=== PATIENT | male | born 1975 | race Caucasian/White ===

== ENCOUNTER 2018-03-12 09:58 | Inpatient (IN) | payer OTHER ==
[2018-03-12 10:54] VITALS: BMI 24.6
--- NOTE | 2018-03-12 13:40 | HP ---
CIWA Score - CIWA Score Nausea/Vomitin-No Nausea/No Vomiting Muscle Tremors: 1-None Visible, but [place] Anxiety: 3 Agitation: 2 Paroxysmal Sweats: 3 Orientation: 0-Oriented Tacttile Disturbances: 0-None Auditory Disturbances: 0-None Visual Disturbances: 0-None Headache: 3-Moderate CIWA-Ar Total Score: 12 Admission ROS S - HPI Chief Complaint: ETOH withdrawal symptoms. Allergies/Adverse Reactions: Allergies Allergy/AdvReac Type Severity Reaction Status Date / Time No Known Allergies Allergy Verified 03/12/18 12:10 History of Present Illness: Patient presents for ETOH withdrawal symptoms. Started drinking at age 19. Drinks up to 12 24 ounce beers daily. Also smoke marajuana since age 19. Smokes up to 5-6 blunts daily. Pt states his drinking became severe after losing his job one year ago. Feels very stressed and anxious due to financial situation. Denies having seizures from ETOH use/withdrawals. Denies SI/HI and suicide attempts. Has one daughter, 17 years of age. Last drink yesterday. Exam Limitations: No Limitations - Ebola screening Have you traveled outside of the country in the last 21 days: No (N) Have you had contact with anyone from an Ebola affected area: No Have you been sick,other than usual withdrawal symptoms: No Do you have a fever: No - Review of Systems Constitutional: Loss of Appetite, Changes in sleep EENT: reports: Nose Congestion Respiratory: reports: No Symptoms reported Cardiac: reports: No Symptoms Reported GI: reports: Poor Fluid Intake, Other (poor appetite) : reports: No Symptoms Reported Musculoskeletal: reports: No Symptoms Reported Integumentary: reports: Sweating Neuro: reports: Headache, Tremors Endocrine: reports: No Symptoms Reported Hematology: reports: No Symptoms Reported Psychiatric: reports: Orientated x3, Anxious, Depressed Patient History - Patient Medical History Hx Anemia: No Hx Asthma: No Hx Chronic Obstructive Pulmonary Disease (COPD): No Hx Cancer: No Hx Cardiac Disorders: No Hx Congestive Heart Failure: No Hx Hypertension: No Hx Hypercholesterolemia: No Hx Pacemaker: No HX Cerebrovascular Accident: No Hx Seizures: No Hx Dementia: No Hx Diabetes: No Hx Gastrointestinal Disorders: No Hx Liver Disease: No Hx Genitourinary Disorders: No Hx Sexually Transmitted Disorders: No Hx Renal Disease (ESRD): No Hx Thyroid Disease: No Hx Human Immunodeficiency Virus (HIV): No Hx Hepatitis C: No Hx Depression: Yes Hx Suicide Attempt: No Hx Bipolar Disorder: No Hx Schizophrenia: No - Patient Surgical History Past Surgical History: Yes Hx Neurologic Surgery: No Hx Cataract Extraction: No Hx Cardiac Surgery: No Hx Lung Surgery: No Hx Breast Surgery: No Hx Breast Biopsy: No Hx Abdominal Surgery: No Hx Appendectomy: No Hx Cholecystectomy: No Hx Genitourinary Surgery: No Hx Section: No Hx Orthopedic Surgery: No Other Surgical History: right inguinal hernia repair in 02/2017 Anesthesia Reaction: No - PPD History Previous Implant?: Yes Documented Results: Negative w/o proof Implanted On Prior R Admission?: No PPD to be Administered?: Yes - Smoking Cessation Smoking history: Former smoker Have you smoked in the past 12 months: No If you are a former smoker, when did you quit?: at age 23 Hx Chewing Tobacco Use: No Initiated information on smoking cessation: No - Substance & Tx. History Hx Alcohol Use: Yes Hx Substance Use: Yes Substance Use Type: Marijuana Hx Substance Use Treatment: No - Substances Abused Alcohol-vodka/beer Route: Oral Frequency: Daily Amount used: 2 pts./5-7 (40 oz.) Age of first use: 19 Date of Last Use: 03/11/18 Marijuana Route: Smoking Frequency: Daily Amount used: $30 Age of first use: 20 Date of Last Use: 03/11/18 Family Disease History - Family Disease History Family History: Denies Admission Physical Exam BHS - Vital Signs Vital Signs: Vital Signs - 24 hr 03/12/18 10:52 Temperature 97.8 F Pulse Rate 69 Respiratory 18 Rate Blood Pressure 137/75 - Physical General Appearance: Yes: No Apparent Distress, Appropriately Dressed, Sweating, Anxious HEENTM: Yes: EOMI, Hearing grossly Normal, Normal ENT Inspection, Normocephalic , Normal Voice, ROSY Respiratory: Yes: Chest Non-Tender, Lungs Clear, Normal Breath Sounds, No Respiratory Distress, No Accessory Muscle Use Neck: Yes: Within Normal Limits, No masses,lesions,Nodules, Supple, Trachea in good position Breast: Yes: Breast Exam Deferred Cardiology: Yes: Regular Rhythm, Regular Rate, S1, S2 Abdominal: Yes: Normal Bowel Sounds, Non Tender, Flat, Soft Genitourinary: Yes: Within Normal Limits Back: Yes: Normal Inspection Musculoskeletal: Yes: Gait Steady Extremities: Yes: Normal Inspection, Normal Range of Motion, Non-Tender, Tremors Neurological: 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: 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 II-XII NML intact, Fully Oriented, Alert, Motor Strength 5/5, Depressed Affect Integumentary: Yes: Normal Color, Warm, Moist Lymphatic: Yes: Within Normal Limits - Diagnostic (1) Alcohol dependence with uncomplicated withdrawal Current Visit: Yes Status: Acute (2) Depressed affect Current Visit: Yes Status: Acute (3) Anxiety Current Visit: Yes Status: Acute (4) Marijuana dependence Current Visit: Yes Status: Acute Cleared for Admission [facility] - Detox or Rehab [facility] Level of Care: Medically Managed Detox Regimen/Protocol: Librium [facility] Breath Alcohol Content Breath Alcohol Content: 0 Urine Drug Screen - Results Drug Screen Negative: No Urine Drug Screen Results: THC-Marijuana
[2018-03-12] MEDS ORDERED: IBUPROFEN 400 MG TABLET (FP) PO PRN (13:54)
[2018-03-12] MEDS ORDERED: hydrOXYzine PAMOATE 50 MG CAPSULE (FP) PO PRN (13:54)
[2018-03-12] MEDS ORDERED: MAGNESIUM CITRATE 300 ML BOTTLE PO PRN (13:54)
[2018-03-12] MEDS ORDERED: MAG HYDROX/AL HYDROX/SIMETH 30 ML UNIT-DOSE CUP PO PRN (13:54)
[2018-03-12] MEDS ORDERED: LOPERAMIDE HCL 2 MG CAPSULE PO PRN (13:54)
[2018-03-12] MEDS ORDERED: guaiFENesin/D-METHORPHAN HB 10 ML UNIT-DOSE CUPS PO PRN (13:54)
[2018-03-12] MEDS ORDERED: MENTHOL/PHENOL 1 EACH UD MM PRN (13:54)
[2018-03-12] MEDS ORDERED: ACETAMINOPHEN 325 MG TABLET (FP) PO PRN (13:54)
[2018-03-12] MEDS ORDERED: MAGNESIUM HYDROX 2400MG/30ML ORAL SUSPENSION 30 ML CUP PO PRN (13:54)
[2018-03-12] MEDS ORDERED: P-EPHED 60MG/TRIPROLIDI 2.5MG TABLET PO PRN (13:54)
[2018-03-12] MEDS ORDERED: chlordiazePOXIDE HCL 25 MG CAPSULE PO PRN (13:56)
[2018-03-12] MEDS ORDERED: chlordiazePOXIDE HCL 25 MG CAPSULE PO ONE (15:00)
[2018-03-12] MEDS: chlordiazePOXIDE HCL 25 MG CAPSULE PO SCH ×2 (17:22→22:15)
--- NOTE | 2018-03-12 22:04 | EKG ---
Test Reason : Blood Pressure : / mmHG Vent. Rate : 061 BPM Atrial Rate : 061 BPM P-R Int : 202 ms QRS Dur : 104 ms QT Int : 416 ms P-R-T Axes : 052 041 048 degrees QTc Int : 418 ms NORMAL SINUS RHYTHM NORMAL ECG NO PREVIOUS ECGS AVAILABLE Confirmed by NAV GRIGGS MD ([id number]) on 03/12/2018 10:04:28 PM Referred By: Confirmed By:NAV GRIGGS MD
[2018-03-12] MEDS: THIAMINE HCL 100 MG TABLET (FP) PO SCH (22:15)
[2018-03-12] MEDS: MELATONIN 5 MG TABLETS PO PRN (22:16)
[2018-03-12 22:58] LABS: URINE APPEARANCE CLEAR; URINE BILIRUBIN NEGATIVE (<2.0 mg/dL); URINE COLOR LTYELLOW; URINE GLUCOSE (UA) NEGATIVE (NEGATIVE); URINE KETONE NEGATIVE (NEGATIVE); URINE LEUK ESTERASE NEGATIVE (NEGATIVE); URINE NITRITE NEGATIVE (NEGATIVE); URINE PROTEIN NEGATIVE (NEGATIVE); URINE UROBILINOGEN NEGATIVE mg/dL (0.2-1.0)
[2018-03-13] MEDS: chlordiazePOXIDE HCL 25 MG CAPSULE PO SCH ×4 (05:58→22:04)
[2018-03-13 10:01] LABS: HEMATOCRIT 40.3 % (35.4-49); HEMOGLOBIN 13.8 GM/dL (11.7-16.9); MCH 31.9 pg (25.7-33.7); MCHC 34.1 g/dl (32.0-35.9); MEAN CELL VOLUME 93.5 fl (80-96); MEAN PLT VOLUME 9.7 fl (7.5-11.1); PLATELET COUNT 250 K/MM3 (134-434); RBC 4.31 M/mm3 (4.00-5.60); RDW 13.4 % (11.9-15.9); WHITE BLOOD COUNT 6.8 K/mm3 (4.0-10.0)
[2018-03-13] MEDS: PRENATAL VITAMINS W/ FOLIC ACID TABLET (FP) PO SCH (10:41)
[2018-03-13 11:05] LABS: CALCIUM 9.7 mg/dL (8.5-10.1); CHLORIDE 103 mmol/L (98-107); POTASSIUM 4.5 mmol/L (3.5-5.1); SODIUM 139 mmol/L (136-145)
[2018-03-13 11:11] LABS: ALBUMIN 4.6 g/dl (3.4-5.0); ALK PHOS 62 U/L (45-117); ANION GAP 8 (8-16); BILIRUBIN,TOTAL 0.6 mg/dL (0.2-1.0); BLOOD UREA NITROGEN 9 mg/dL (7-18); CO2 28 mmol/L (21-32); CREATININE 0.8 mg/dL (0.7-1.3); GLUCOSE,RANDOM 90 mg/dL (74-106); SGOT/AST 18 U/L (15-37); SGPT/ALT 18 U/L (12-78); TOT PROT 7.9 g/dl (6.4-8.2)
--- NOTE | 2018-03-13 11:21 | PN ---
[facility] CIWA - CIWA Score Nausea/Vomitin-No Nausea/No Vomiting Muscle Tremors: 4-Moderate,w/Arms Extend Anxiety: 4-Mod. Anxious/Guarded Agitation: 4-Moderately Restless Paroxysmal Sweats: 1-Minimal Palms Moist Orientation: 0-Oriented Tacttile Disturbances: 0-None Auditory Disturbances: 0-None Visual Disturbances: 0-None Headache: 0-None Present CIWA-Ar Total Score: 13 S Progress Note (SOAP) Subjective: LYING IN BED DURING ROUNDS. ANXIETY,SWEATS. Objective: 03/13/18 11:21 Vital Signs Temperature 96.6 F L 03/13/18 09:21 Pulse Rate 56 L 03/13/18 09:21 Respiratory Rate 16 03/13/18 09:21 Blood Pressure 89/61 03/13/18 09:21 O2 Sat by Pulse Oximetry (%) Laboratory Last Values WBC 6.8 K/mm3 (4.0-10.0) 03/13/18 06:00 RBC 4.31 M/mm3 (4.00-5.60) 03/13/18 06:00 Hgb 13.8 GM/dL (11.7-16.9) 03/13/18 06:00 Hct 40.3 % (35.4-49) 03/13/18 06:00 MCV 93.5 fl (80-96) 03/13/18 06:00 MCH 31.9 pg (25.7-33.7) 03/13/18 06:00 MCHC 34.1 g/dl (32.0-35.9) 03/13/18 06:00 RDW 13.4 % (11.9-15.9) 03/13/18 06:00 Plt Count 250 K/MM3 (134-434) 03/13/18 06:00 MPV 9.7 fl (7.5-11.1) 03/13/18 06:00 Sodium 139 mmol/L (136-145) 03/13/18 06:00 Potassium 4.5 mmol/L (3.5-5.1) 03/13/18 06:00 Chloride 103 mmol/L (98-107) 03/13/18 06:00 Carbon Dioxide 28 mmol/L (21-32) 03/13/18 06:00 Anion Gap 8 (8-16) 03/13/18 06:00 BUN 9 mg/dL (7-18) 03/13/18 06:00 Creatinine 0.8 mg/dL (0.7-1.3) 03/13/18 06:00 Creat Clearance w eGFR > 60 (>60) 03/13/18 06:00 Random Glucose 90 mg/dL (74-106) 03/13/18 06:00 Calcium 9.7 mg/dL (8.5-10.1) 03/13/18 06:00 Total Bilirubin 0.6 mg/dL (0.2-1.0) 03/13/18 06:00 AST 18 U/L (15-37) 03/13/18 06:00 ALT 18 U/L (12-78) 03/13/18 06:00 Alkaline Phosphatase 62 U/L (45-117) 03/13/18 06:00 Total Protein 7.9 g/dl (6.4-8.2) 03/13/18 06:00 Albumin 4.6 g/dl (3.4-5.0) 03/13/18 06:00 Urine Color Ltyellow 03/12/18 23:00 Urine Appearance Clear 03/12/18 23:00 Urine pH 7.0 (5.0-8.0) 03/12/18 23:00 Ur Specific [place] 1.012 (1.001-1.035) 03/12/18 23:00 Urine Protein Negative (NEGATIVE) 03/12/18 23:00 Urine Glucose (UA) Negative (NEGATIVE) 03/12/18 23:00 Urine Ketones Negative (NEGATIVE) 03/12/18 23:00 Urine Blood Negative (NEGATIVE) 03/12/18 23:00 Urine Nitrite Negative (NEGATIVE) 03/12/18 23:00 Urine Bilirubin Negative (<2.0 mg/dL) 03/12/18 23:00 Urine Urobilinogen Negative mg/dL (0.2-1.0) 03/12/18 23:00 Ur Leukocyte Esterase Negative (NEGATIVE) 03/12/18 23:00 Assessment: 03/13/18 11:22 WITHDRAWAL SX Plan: CONTINUE DETOX
--- NOTE | 2018-03-13 17:58 | CONSULT ---
[facility] Psychiatric Consult - Data Date of interview: 03/13/18 Admission source: [facility] Identifying data: First admission to [facility] for this 42 y/o [place]-born male seeking detox treatment on for alcohol and cannabis dependence.Patient is single,a father of one,homeless,unemployed and deprived of any source of income. Substance Abuse History: Confirmed by patient in this session.Details in current [facility] report : Smoking history: Former smoker. Have you smoked in the past 12 months: No. If you are a former smoker, when did you quit?: at age 23. Hx Chewing Tobacco Use: No. Initiated information on smoking cessation: No. - Substance & Tx. History. Hx Alcohol Use: Yes. Hx Substance Use: Yes. Substance Use Type: Marijuana. Hx Substance Use Treatment: No. - Substances Abused. Alcohol-vodka/beer. Route: Oral. Frequency: Daily. Amount used: 2 pts./5-7 (40 oz.). Age of first use: 19. Date of Last Use: 03/11/18. Marijuana. Route: Smoking. Frequency: Daily. Amount used: $30. Age of first use: 20. Date of Last Use: 03/11/18 Medical History: History of right inguinal herniorraphy (2006). Psychiatric History: Patient denies. Physical/Sexual Abuse/Trauma History: Patient denies. Additional Comment: Urine Drug Screen Results: THC-Marijuana.Noted. Mental Status Exam - Mental Status Exam Alert and Oriented to: Time, Place, Person Cognitive Function: Good Patient Appearance: Disheveled (unshaven) Mood: Nervous, Withdrawn, Anxious Affect: Mood Congruent, Constricted Patient Behavior: Appropriate, Cooperative Speech Pattern: Clear (fluent in greenlandic) Voice Loudness: Normal Thought Process: Intact, Goal Oriented Thought Disorder: Not Present Hallucinations: Denies Suicidal Ideation: Denies Homicidal Ideation: Denies Insight/Judgement: Fair Sleep: Well Appetite: Good Muscle strength/Tone: Normal Gait/Station: Normal Psychiatric Findings - Problem List ([place] 1, 2,3) (1) Alcohol dependence with uncomplicated withdrawal Current Visit: Yes Status: Acute (2) Marijuana dependence Current Visit: Yes Status: Acute - Initial Treatment Plan Initial Treatment Plan: Psychoeducation.Support.Detoxification.Observation.
[2018-03-13] MEDS: THIAMINE HCL 100 MG TABLET (FP) PO SCH (22:03)
[2018-03-13] MEDS: MELATONIN 5 MG TABLETS PO PRN (22:04)
[2018-03-14] MEDS: chlordiazePOXIDE HCL 25 MG CAPSULE PO SCH ×2 (05:27→10:11)
[2018-03-14] MEDS: PRENATAL VITAMINS W/ FOLIC ACID TABLET (FP) PO SCH (10:11)
--- NOTE | 2018-03-14 12:15 | PN ---
[facility] CIWA - CIWA Score Nausea/Vomitin-No Nausea/No Vomiting Muscle Tremors: 4-Moderate,w/Arms Extend Anxiety: 4-Mod. Anxious/Guarded Agitation: 4-Moderately Restless Paroxysmal Sweats: 1-Minimal Palms Moist Orientation: 0-Oriented Tacttile Disturbances: 0-None Auditory Disturbances: 0-None Visual Disturbances: 0-None Headache: 0-None Present CIWA-Ar Total Score: 13 BHS Progress Note (SOAP) Subjective: ANXIETY. SWEATS,FATIGUE. Objective: 03/14/18 12:14 Vital Signs Temperature 97.8 F 03/14/18 09:12 Pulse Rate 53 L 03/14/18 09:12 Respiratory Rate 18 03/14/18 09:12 Blood Pressure 103/57 03/14/18 09:12 O2 Sat by Pulse Oximetry (%) Laboratory Last Values WBC 6.8 K/mm3 (4.0-10.0) 03/13/18 06:00 RBC 4.31 M/mm3 (4.00-5.60) 03/13/18 06:00 Hgb 13.8 GM/dL (11.7-16.9) 03/13/18 06:00 Hct 40.3 % (35.4-49) 03/13/18 06:00 MCV 93.5 fl (80-96) 03/13/18 06:00 MCH 31.9 pg (25.7-33.7) 03/13/18 06:00 MCHC 34.1 g/dl (32.0-35.9) 03/13/18 06:00 RDW 13.4 % (11.9-15.9) 03/13/18 06:00 Plt Count 250 K/MM3 (134-434) 03/13/18 06:00 MPV 9.7 fl (7.5-11.1) 03/13/18 06:00 Sodium 139 mmol/L (136-145) 03/13/18 06:00 Potassium 4.5 mmol/L (3.5-5.1) 03/13/18 06:00 Chloride 103 mmol/L (98-107) 03/13/18 06:00 Carbon Dioxide 28 mmol/L (21-32) 03/13/18 06:00 Anion Gap 8 (8-16) 03/13/18 06:00 BUN 9 mg/dL (7-18) 03/13/18 06:00 Creatinine 0.8 mg/dL (0.7-1.3) 03/13/18 06:00 Creat Clearance w eGFR > 60 (>60) 03/13/18 06:00 Random Glucose 90 mg/dL (74-106) 03/13/18 06:00 Calcium 9.7 mg/dL (8.5-10.1) 03/13/18 06:00 Total Bilirubin 0.6 mg/dL (0.2-1.0) 03/13/18 06:00 AST 18 U/L (15-37) 03/13/18 06:00 ALT 18 U/L (12-78) 03/13/18 06:00 Alkaline Phosphatase 62 U/L (45-117) 03/13/18 06:00 Total Protein 7.9 g/dl (6.4-8.2) 03/13/18 06:00 Albumin 4.6 g/dl (3.4-5.0) 03/13/18 06:00 Urine Color Ltyellow 03/12/18 23:00 Urine Appearance Clear 03/12/18 23:00 Urine pH 7.0 (5.0-8.0) 03/12/18 23:00 Ur Specific [place] 1.012 (1.001-1.035) 03/12/18 23:00 Urine Protein Negative (NEGATIVE) 03/12/18 23:00 Urine Glucose (UA) Negative (NEGATIVE) 03/12/18 23:00 Urine Ketones Negative (NEGATIVE) 03/12/18 23:00 Urine Blood Negative (NEGATIVE) 03/12/18 23:00 Urine Nitrite Negative (NEGATIVE) 03/12/18 23:00 Urine Bilirubin Negative (<2.0 mg/dL) 03/12/18 23:00 Urine Urobilinogen Negative mg/dL (0.2-1.0) 03/12/18 23:00 Ur Leukocyte Esterase Negative (NEGATIVE) 03/12/18 23:00 RPR Titer Nonreactive (NONREACTIVE) 03/13/18 06:00 Assessment: 03/14/18 12:15 WITHDRAWAL SX Plan: CONTINUE DETOX INCREASE PO FLUIDS.
[2018-03-14] MEDS: chlordiazePOXIDE 5 MG CAPSULE PO SCH ×2 (16:59→22:00)
[2018-03-14] MEDS: THIAMINE HCL 100 MG TABLET (FP) PO SCH (21:59)
[2018-03-15] MEDS: chlordiazePOXIDE 5 MG CAPSULE PO SCH ×2 (06:02→10:23)
[2018-03-15] MEDS: PRENATAL VITAMINS W/ FOLIC ACID TABLET (FP) PO SCH (10:23)
--- NOTE | 2018-03-15 11:40 | PN ---
S Progress Note (SOAP) Subjective: ALERT O X 3. DETOX PROCEEDING WELL. SLIGHT ANXIETY AND FATIGUE. Objective: 03/15/18 11:40 Vital Signs Temperature 96.7 F L 03/15/18 09:22 Pulse Rate 62 03/15/18 09:22 Respiratory Rate 16 03/15/18 09:22 Blood Pressure 101/60 03/15/18 09:22 O2 Sat by Pulse Oximetry (%) Laboratory Last Values WBC 6.8 K/mm3 (4.0-10.0) 03/13/18 06:00 RBC 4.31 M/mm3 (4.00-5.60) 03/13/18 06:00 Hgb 13.8 GM/dL (11.7-16.9) 03/13/18 06:00 Hct 40.3 % (35.4-49) 03/13/18 06:00 MCV 93.5 fl (80-96) 03/13/18 06:00 MCH 31.9 pg (25.7-33.7) 03/13/18 06:00 MCHC 34.1 g/dl (32.0-35.9) 03/13/18 06:00 RDW 13.4 % (11.9-15.9) 03/13/18 06:00 Plt Count 250 K/MM3 (134-434) 03/13/18 06:00 MPV 9.7 fl (7.5-11.1) 03/13/18 06:00 Sodium 139 mmol/L (136-145) 03/13/18 06:00 Potassium 4.5 mmol/L (3.5-5.1) 03/13/18 06:00 Chloride 103 mmol/L (98-107) 03/13/18 06:00 Carbon Dioxide 28 mmol/L (21-32) 03/13/18 06:00 Anion Gap 8 (8-16) 03/13/18 06:00 BUN 9 mg/dL (7-18) 03/13/18 06:00 Creatinine 0.8 mg/dL (0.7-1.3) 03/13/18 06:00 Creat Clearance w eGFR > 60 (>60) 03/13/18 06:00 Random Glucose 90 mg/dL (74-106) 03/13/18 06:00 Calcium 9.7 mg/dL (8.5-10.1) 03/13/18 06:00 Total Bilirubin 0.6 mg/dL (0.2-1.0) 03/13/18 06:00 AST 18 U/L (15-37) 03/13/18 06:00 ALT 18 U/L (12-78) 03/13/18 06:00 Alkaline Phosphatase 62 U/L (45-117) 03/13/18 06:00 Total Protein 7.9 g/dl (6.4-8.2) 03/13/18 06:00 Albumin 4.6 g/dl (3.4-5.0) 03/13/18 06:00 Urine Color Ltyellow 03/12/18 23:00 Urine Appearance Clear 03/12/18 23:00 Urine pH 7.0 (5.0-8.0) 03/12/18 23:00 Ur Specific [place] 1.012 (1.001-1.035) 03/12/18 23:00 Urine Protein Negative (NEGATIVE) 03/12/18 23:00 Urine Glucose (UA) Negative (NEGATIVE) 03/12/18 23:00 Urine Ketones Negative (NEGATIVE) 03/12/18 23:00 Urine Blood Negative (NEGATIVE) 03/12/18 23:00 Urine Nitrite Negative (NEGATIVE) 03/12/18 23:00 Urine Bilirubin Negative (<2.0 mg/dL) 03/12/18 23:00 Urine Urobilinogen Negative mg/dL (0.2-1.0) 03/12/18 23:00 Ur Leukocyte Esterase Negative (NEGATIVE) 03/12/18 23:00 RPR Titer Nonreactive (NONREACTIVE) 03/13/18 06:00 Assessment: 03/15/18 11:40 WITHDRAWAL SX Plan: CONTINUE DETOX
[2018-03-15] MEDS: chlordiazePOXIDE HCL 10 MG CAPSULE PO SCH ×2 (17:18→22:18)
[2018-03-15] MEDS: THIAMINE HCL 100 MG TABLET (FP) PO SCH (22:18)
[2018-03-16] MEDS: chlordiazePOXIDE HCL 10 MG CAPSULE PO SCH ×2 (06:06→10:15)
--- NOTE | 2018-03-16 08:40 | DS ---
[facility] Detox Discharge Summary Admission Date: 03/12/18 Discharge Date: 03/16/18 - History Present History: Alcohol Dependence, Cannabis Dependence Additional Comments: DETOX COMPLETED. ALERT O X 3. PT INSTRUCTED TO FOLLOW UP AT [facility] FOR MEDICAL MANAGEMENT NEEDED. Pertinent Past History: PLEASE SEE DX BELOW - Physical Exam Results Vital Signs: Vital Signs Temperature 96.4 F L 03/16/18 06:15 Pulse Rate 64 03/16/18 06:15 Respiratory Rate 18 03/16/18 06:15 Blood Pressure 106/61 03/16/18 06:15 O2 Sat by Pulse Oximetry (%) Pertinent Admission Physical Exam Findings: WITHDRAWAL SX Laboratory Tests 03/12/18 03/13/18 03/13/18 23:00 06:00 06:00 WBC 6.8 RBC 4.31 Hgb 13.8 Hct 40.3 MCV 93.5 MCH 31.9 MCHC 34.1 RDW 13.4 Plt Count 250 MPV 9.7 Sodium 139 Potassium 4.5 Chloride 103 Carbon Dioxide 28 Anion Gap 8 BUN 9 Creatinine 0.8 Creat Clearance w eGFR > 60 Random Glucose 90 Calcium 9.7 Total Bilirubin 0.6 AST 18 ALT 18 Alkaline Phosphatase 62 Total Protein 7.9 Albumin 4.6 Urine Color Ltyellow Urine Appearance Clear Urine pH 7.0 Ur Specific [place] 1.012 Urine Protein Negative Urine Glucose (UA) Negative Urine Ketones Negative Urine Blood Negative Urine Nitrite Negative Urine Bilirubin Negative Urine Urobilinogen Negative Ur Leukocyte Esterase Negative RPR Titer 03/13/18 06:00 WBC RBC Hgb Hct MCV MCH MCHC RDW Plt Count MPV Sodium Potassium Chloride Carbon Dioxide Anion Gap BUN Creatinine Creat Clearance w eGFR Random Glucose Calcium Total Bilirubin AST ALT Alkaline Phosphatase Total Protein Albumin Urine Color Urine Appearance Urine pH Ur Specific [place] Urine Protein Urine Glucose (UA) Urine Ketones Urine Blood Urine Nitrite Urine Bilirubin Urine Urobilinogen Ur Leukocyte Esterase RPR Titer Nonreactive - Treatment Hospital Course: Detox Protocol Followed, Detoxed Safely, Responded well, Discharged Condition Good - Medication Discharge Medications: Ambulatory Orders NK [No Known Home Medication] 03/12/18 - Diagnosis (1) Alcohol dependence with uncomplicated withdrawal Status: Acute (2) Marijuana dependence Status: Acute (3) Dehydration Status: Acute - AMA Did Patient Leave Against Medical Advice: No
[2018-03-16 10:10] VITALS: BP 97/70; PULSE 73; TEMP 96
[2018-03-16] MEDS: PRENATAL VITAMINS W/ FOLIC ACID TABLET (FP) PO SCH (10:15)
== END 2018-03-16 10:20 | disposition home or self-care (01) | DRG 775 ==
LOC: YASAS 09:58 → Y3N 12:38
PROVIDERS: ADMIT Internal Medicine; ATTEND Internal Medicine
PROC: HZ2ZZZZ Detoxification Services for Substance Abuse Treatment (ICD-10-PCS; principal; 2018-03-12)
DX: F10.230 Alcohol dependence with withdrawal, uncomplicated (principal); F12.20 Cannabis dependence, uncomplicated; F41.9 Anxiety disorder, unspecified; R45.89 Other symptoms and signs involving emotional state; E86.0 Dehydration
CPT/HCPCS: 36415; 80053; 81003; 85027; 86593; 93005; 93010